=== PATIENT | female | born 1995 | race Hispanic/Latino ===

== ENCOUNTER 2020-02-04 19:10 | Inpatient (IN) ==
[2020-02-04] MEDS ORDERED: STADOL IV PRN ×3 (21:02)
[2020-02-04] MEDS ORDERED: AMPICILLIN 2 GM in NS 100 ML IV ONE (21:02)
[2020-02-04] MEDS ORDERED: PEPCID PO PRN (21:02)
[2020-02-04] MEDS ORDERED: AMBIEN PO PRN (21:02)
[2020-02-04] MEDS ORDERED: LR 1,000 ML IV ONE (21:02)
[2020-02-04] MEDS ORDERED: BRETHINE SUBQ PRN (21:02)
[2020-02-04] MEDS ORDERED: PEPCID IV PRN (21:02)
[2020-02-04] MEDS ORDERED: REGLAN PO ONE (21:02)
[2020-02-04] MEDS ORDERED: ZOFRAN IV PRN (21:02)
[2020-02-04] MEDS ORDERED: PEPCID PO ONE (21:02)
[2020-02-04] MEDS ORDERED: KEFZOL 1 GM/D5W 1 GM/50 ML IVPB IV PRN (21:02)
[2020-02-04] MEDS ORDERED: XYLOCAINE-MPF 1% INJ PRN (21:08)
[2020-02-04] MEDS ORDERED: MINERAL OIL TOP PRN (21:08)
[2020-02-04 21:17] LABS: URINE SOURCE VOIDED
[2020-02-04 21:23] LABS: BILIRUBIN URINE NEGATIVE (NEGATIVE); BLOOD URINE NEGATIVE (NEGATIVE); COLOR YELLOW; GLUCOSE URINE NEGATIVE (NEGATIVE); KETONE URINE NEGATIVE (NEGATIVE); LEUKOCYTES URINE LARGE (NEGATIVE); NITRITE URINE NEGATIVE (NEGATIVE); PH URINE 6.5; PROTEIN URINE NEGATIVE (NEGATIVE); SP GRAVITY URINE 1.007; TURBIDITY URINE HAZY (CLEAR); UROBILINOGEN URINE NORMAL (NORMAL)
[2020-02-04 21:31] LABS: UR AMPHETAMINES QUAL NONE DETECTED (NONE DETECT); UR BARBITUATES QUAL NONE DETECTED (NONE DETECT); UR BENZODIAZEPIN QUAL NONE DETECTED (NONE DETECT); UR CANNABINOIDS QUAL NONE DETECTED (NONE DETECT); UR COCAINE QUAL NONE DETECTED (NONE DETECT); UR METHADONE QUAL NONE DETECTED (NONE DETECT); UR OPIATES QUAL NONE DETECTED (NONE DETECT); UR OXYCODONE QUAL NONE DETECTED (NONE DETECT); UR PCP QUAL NONE DETECTED (NONE DETECT)
[2020-02-04] MEDS ORDERED: CYTOTEC VAG ONE (22:00)
[2020-02-04 22:06] LABS: BASO# 0.04 X1000 (0.0-0.2); BASO% 0.6 % (0.0-0.8); EOS# 0.08 X1000 (0.0-0.7); EOS% 1.1 % (0.0-10.0); HEMATOCRIT 34.1 % (37.0-47.0); HEMOGLOBIN 11.3 g/dL (12.0-16.0); IMM GRAN# 0.04 X1000 (0.0-0.04); IMM GRAN% 0.6 % (0.0-0.5); LYMPH# 2.65 X1000 (1.2-3.4); LYMPH% 36.9 % (20.5-51.1); MCH 27.2 PG (27-31); MCHC 33.1 g/dL (33-37); MCV 82.2 FL (81-99); MONO# 0.31 X1000 (0.11-0.59); MONO% 4.3 % (1.7-9.3); MPV 11.2 FL (7.4-10.4); NEUT# 4.07 X1000 (1.4-6.5); NEUT% 56.5 % (42.2-75.2); PLT 176 X1000 (130-400); RBC 4.15 XMIL (4.2-5.4); RDW 13.4 % (11.5-14.5); WBC 7.19 X1000 (4.8-10.8)
[2020-02-05] MEDS ORDERED: CYTOTEC VAG SCH (02:00)
[2020-02-05] MEDS: AMPICILLIN 1 GM in NS 50 ML IV SCH ×2 (02:20→06:07)
[2020-02-05] MEDS: LR 1,000 ML IV SCH ×2 (02:22→08:14)
[2020-02-05] MEDS ORDERED: PITOCIN 30 UNITS/NS 30 UNIT/500 ML IV.SOLN IV SCH (06:00)
--- NOTE | 2020-02-05 07:24 | HISTORY AND PHYSICAL ---
HISTORY OF PRESENT ILLNESS: Ms. Patton is a 24-year-old, G 2, P 1-0-0-1 at 39 weeks and 2 days, who presents to Labor and Delivery for scheduled induction of labor. The patient currently without complaints, reports good movements, denies contractions, leakage of fluid or vaginal bleeding. Current unremarkable. No complications. Initial labs showed Rh positive, RPR nonreactive, HIV nonreactive, hepatitis B and hepatitis C nonreactive. Negative urine drug screen. CURRENT MEDICATIONS: vitamins. ALLERGIES: No known drug allergies. PAST MEDICAL HISTORY: None. PAST SURGICAL HISTORY: None. 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 Menarche at age 12. OBSTETRICAL HISTORY: G 2, P 1-0-0-1. One prior full-term vaginal delivery at 40 weeks on 11/04/2018, male infant, no complications. FAMILY HISTORY: Noncontributory. SOCIAL HISTORY: Negative. Denies tobacco, alcohol, or drug use. PHYSICAL EXAMINATION: VITALS: Temperature 97.2 degrees, pulse rate 68, respiration rate 18, blood pressure 106/66, O2 saturation 98% on room air. Weight 140 pounds, height 5 feet 0 inches tall. GENERAL: On physical examination, no acute distress. Alert, awake, oriented x3. CARDIOVASCULAR: Regular rate and rhythm. Positive S1, S2. RESPIRATORY: Clear to auscultation bilaterally. Negative rhonchi, rales or wheezing. ABDOMEN: Gravid, soft, nontender to palpation. PELVIS: Sterile vaginal exam, 3 cm dilated, 80% effaced, -2 station. EXTREMITIES: Negative calf tenderness. There is +1 edema. CURRENT LABS: WBCs 7.19, hemoglobin 11.3, hematocrit 34.1, platelets 176. Urine drug screen negative. RPR nonreactive. GBS status positive. ASSESSMENT: Ms. Patton is a 24-year-old, 2, para 1-0-0-1 at 39 weeks and 2 days, who presents for scheduled induction of labor. 1. Admit to Labor and Delivery for routine induction. 2. Induction with intravenous Pitocin. 3. Obtain routine labor labs. 4. Continuous electronic monitoring. 5. GBS positive status. We will continue intravenous ampicillin every 4 hours until delivery. 6. Estimated weight 7-1/2 pounds. 7. Anticipate spontaneous vaginal delivery. Patient counseled on risks, benefits, and alternatives to procedure. Risks not limited to infection, bleeding, vaginal laceration, delivery with vacuum or emergent delivery. The patient understands risks and agrees to procedure.
[2020-02-05] MEDS ORDERED: BICITRA PO ONE (08:13)
[2020-02-05] MEDS ORDERED: REGLAN PO ONE (08:13)
[2020-02-05] MEDS ORDERED: BICITRA ONE (08:15)
[2020-02-05] MEDS ORDERED: DIPRIVAN 1% ONE (08:22)
[2020-02-05] MEDS: KEFZOL 2 GM/D5W 2 GM/50 ML IVPB IV ONE ×3 (08:25→17:58)
[2020-02-05] MEDS ORDERED: MORPHINE ONE (08:39)
[2020-02-05] MEDS ORDERED: SODIUM CHLORIDE 0.9% 10 ML ONE ×2 (08:40→09:09)
[2020-02-05] MEDS ORDERED: ZOFRAN ONE (08:41)
[2020-02-05] MEDS ORDERED: PITOCIN ONE (08:47)
[2020-02-05] MEDS ORDERED: XYLOCAINE-MPF 2% ONE (08:54)
[2020-02-05] MEDS ORDERED: QUELICIN (DOSE) ONE (09:09)
[2020-02-05] MEDS ORDERED: DEMEROL PO PRN ×4 (09:35→09:57)
[2020-02-05] MEDS ORDERED: DULCOLAX PR PRN ×2 (09:35→09:57)
[2020-02-05] MEDS ORDERED: ATARAX PO PRN ×2 (09:35→09:56)
[2020-02-05] MEDS ORDERED: BOOSTRIX VACCINE IM ONE (09:35)
[2020-02-05] MEDS ORDERED: DEMEROL IM PRN ×2 (09:35→09:56)
[2020-02-05] MEDS ORDERED: MOTRIN PO PRN (09:35)
[2020-02-05] MEDS ORDERED: PITOCIN 20 UNITS/NS 20 UNITS/1,000 ML IV.SOLN IV ONE ×2 (09:35→11:00)
[2020-02-05] MEDS ORDERED: HYDROXYZINE IM PRN ×2 (09:35→09:57)
[2020-02-05] MEDS ORDERED: AMBIEN PO PRN (09:35)
[2020-02-05] MEDS ORDERED: MYLICON PO PRN ×2 (09:35→09:59)
[2020-02-05] MEDS ORDERED: PHENERGAN IM PRN ×2 (09:35→10:00)
[2020-02-05] MEDS ORDERED: PITOCIN IM PRN ×2 (09:35→10:02)
[2020-02-05] MEDS ORDERED: M-M-R II VACCINE SUBQ ONE (09:35)
[2020-02-05] MEDS ORDERED: PITOCIN 10 UNITS/NS 1,000 ML IV SCH (09:45)
[2020-02-05] MEDS ORDERED: TORADOL IV SCH (09:45)
[2020-02-05] MEDS ORDERED: OFIRMEV 1000 MG/ISOTONIC SOLN 1,000 MG/100 ML BOTTLE IV SCH (09:45)
[2020-02-05] MEDS ORDERED: LR 1,000 ML IV SCH ×3 (10:00→11:00)
[2020-02-05] MEDS ORDERED: BENADRYL IV PRN ×2 (10:08→10:15)
[2020-02-05] MEDS ORDERED: SODIUM CHLORIDE 0.9% INJ PRN ×2 (10:08→10:15)
[2020-02-05] MEDS ORDERED: PHENERGAN IV PRN ×2 (10:08→10:15)
[2020-02-05] MEDS ORDERED: NARCAN IV PRN ×2 (10:08→10:15)
[2020-02-05] MEDS ORDERED: MORPHINE IV ONE (10:15)
[2020-02-05] MEDS ORDERED: MORPHINE PCA IV PRN (10:15)
[2020-02-05] MEDS: MORPHINE PCA IV PRN (10:30)
[2020-02-05] MEDS ORDERED: MYLICON PO SCH (13:00)
[2020-02-05] MEDS: TORADOL IV SCH (17:50)
[2020-02-05] MEDS: OFIRMEV 1000 MG/ISOTONIC SOLN 1,000 MG/100 ML BOTTLE IV SCH (18:05)
[2020-02-05] MEDS: PITOCIN 10 UNITS/NS 1,000 ML IV SCH (18:05)
[2020-02-05] MEDS ORDERED: PERICOLACE PO SCH (21:00)
[2020-02-06] MEDS: OFIRMEV 1000 MG/ISOTONIC SOLN 1,000 MG/100 ML BOTTLE IV SCH ×4 (00:05→13:06)
[2020-02-06] MEDS: TORADOL IV SCH ×5 (00:07→17:25)
[2020-02-06] MEDS: PERICOLACE PO SCH ×2 (00:08→20:26)
[2020-02-06] MEDS: MYLICON PO SCH ×6 (00:08→20:25)
[2020-02-06] MEDS: PITOCIN 10 UNITS/NS 1,000 ML IV SCH (02:30)
[2020-02-06 05:56] LABS: BASO# 0.01 X1000 (0.0-0.2); BASO% 0.1 % (0.0-0.8); EOS# 0.04 X1000 (0.0-0.7); EOS% 0.4 % (0.0-10.0); HEMATOCRIT 26.7 % (37.0-47.0); HEMOGLOBIN 8.6 g/dL (12.0-16.0); IMM GRAN# 0.02 X1000 (0.0-0.04); IMM GRAN% 0.2 % (0.0-0.5); LYMPH# 1.97 X1000 (1.2-3.4); LYMPH% 20.6 % (20.5-51.1); MCHC 32.2 g/dL (33-37); MONO% 4.2 % (1.7-9.3); MPV 10.6 FL (7.4-10.4); NEUT% 74.5 % (42.2-75.2); PLT 162 X1000 (130-400); RBC 3.18 XMIL (4.2-5.4); RDW 13.3 % (11.5-14.5); WBC 9.54 X1000 (4.8-10.8)
[2020-02-06] MEDS: MORPHINE PCA IV PRN (08:15)
--- NOTE | 2020-02-06 08:30 | OPERATIVE NOTE ---
PROCEDURE DATE: 02/05/2020 SURGEON: Dr. Lia Davey. APPOINTMENT SCHEDULER: Saba Jimeenz. PREOPERATIVE DIAGNOSES: 1. Intrauterine at 39 weeks and 2 days based on first trimester ultrasound. 2. Non reassuring heart tracing. 3. Thick meconium. POSTOPERATIVE DIAGNOSIS: 1. Intrauterine at 39 weeks and 2 days based on first trimester ultrasound. 2. Non reassuring heart tracing. 3. Thick meconium. PROCEDURE PERFORMED: Primary low-transverse section. ANESTHESIA: General endotracheal anesthesia. URINE OUTPUT: 300 mL. ESTIMATED BLOOD LOSS: 1 L. COMPLICATIONS: None. SURGICAL RISK: The patient was informed of the risks and benefits of the procedure. Risks included, but were not limited to bleeding, infection, injury to internal organs and possible hysterectomy. The patient expressed understanding of the risks involved. All questions were answered and the patient consented to the procedure. DESCRIPTION OF PROCEDURE: The patient was taken to the operating room where a time-out was performed to confirm correct patient and correct procedure. Prophylactic intravenous antibiotics was administered. The patient was placed in a dorsal supine position with a left tilt of the hips. The patient was then prepped and draped in the usual sterile fashion for a Pfannenstiel skin incision. General anesthesia was then adequately established. An incision was made in the skin with a surgical scalpel, and sharp dissection was carried out over subsequent layers of tissue including the fascia. The fascia was incised at the midline, and a fascial incision was extended bilaterally using the Bovie electrocautery. The inferior edge of the fascial incision was grasped with Elizabeth clamps, tented up, and the underlying rectus muscle dissected off using the Bovie electrocautery. Attention was then turned to the superior edge, which was grasped with Elizabeth clamps, tented up, and the underlying rectus muscles were dissected off using the Bovie electrocautery. The rectus muscle was then divided at the midline, and the peritoneum was identified and bluntly entered at its superior margin, taking care to avoid the bladder. The peritoneal incision was extended superiorly and inferiorly with good visualization of the bladder. The bladder blade was inserted, and a transverse incision was made in the lower uterine segment using the scalpel. The uterine incision was extended bilaterally using blunt dissection. The surgeon's hand was placed in the uterine cavity. The cord was noted below the head and manually displaced. The head was elevated into the abdomen after removing the cord, and delivered through the uterine incision with the assistance of fundal pressure. The was examined for nuchal cord. Nuchal cord x1 was identified and reduced. The was then delivered with traction and assistance of fundal pressure. The infant's oral and nasal passages were bulb suctioned. On delivery, the cord was clamped and cut. The was then passed off the table to the awaiting acupressurist staff for further care. Cord blood was obtained for analysis and routine blood testing. Placenta was delivered manually and extracted intact with a three-vessel cord. Oxytocin was administered by IV infusion to enhance uterine contraction. The uterus was exteriorized and cleared of all clots and remaining products of conception. The uterine incision was reapproximated using 0 Monocryl absorbable suture in a running locked fashion. A second 0 Monocryl stitch was used for non hemostatic areas and applied in a [id number] fashion. Good hemostasis was confirmed. The uterus was replaced in the abdomen, and pericolic gutters were cleared of all clots. The fascia was reapproximated using 0 Vicryl in a running nonlocked fashion. The skin was reapproximated using 4-0 Monocryl on a Jose stitch insert in a subcuticular stitch fashion. All needle, sponge, and instrument counts were noted to be correct x2 at the end of the procedure. The patient tolerated the procedure well, and was transferred to the recovery room in stable condition.
[2020-02-06] MEDS ORDERED: LR 1,000 ML IV SCH (09:35)
--- NOTE | 2020-02-06 11:45 | PROGRESS NOTE ---
DATE: 02/06/2020 SUBJECTIVE: She was assessed in her room and has no complaints at this time. She has not stood up to ambulate secondary to having a section and due to the IV medications that she is receiving. However, the IV medications will be discontinued at 12 noon. The patient will ambulate with assistance and will be allowed to shower. She is doing well and her pain is well controlled at this time. She speaks very little Italian, and her spouse assisted with her translation. OBJECTIVE: Vital Signs: On physical examination, vital signs within normal limits. Heart: Regular rhythm and rate without murmur. Lungs: Clear to auscultation. Abdomen: Soft, nontender to soft palpation, firm fundus, dressing in place to cover the incision and is non soiled. Extremities: With compression devices actively working. No Homans sign. ASSESSMENT: Status post primary section postoperative day #1, stable (continue postoperative management). PLAN: 1. Discontinue IV analgesia at 12 noon, in addition to operative anesthetic. 2. Ambulate with assistance after 12 noon. 3. The patient may shower when able to ambulate safely. 4. Continue postoperative management.
[2020-02-06] MEDS ORDERED: PERCOCET-5 PO PRN (16:05)
[2020-02-06] MEDS: PERCOCET-10 PO PRN ×2 (16:22→19:44)
[2020-02-06] MEDS: MOTRIN PO PRN (19:46)
[2020-02-07] MEDS: TYLENOL PO PRN ×3 (02:38→17:20)
[2020-02-07] MEDS: PERCOCET-10 PO PRN ×5 (04:30→20:57)
[2020-02-07] MEDS: MOTRIN PO PRN ×2 (04:31→14:02)
--- NOTE | 2020-02-07 07:23 | OB/GYN PROGRESS NOTE ---
- Subjective no complaints, discussed possible discharge tomorrow OB Physical Exam Vital Signs - 8 hr 02/07/20 00:02 02/07/20 04:31 Temperature 97.3 F L 96.9 F L Pulse Rate 86 86 Respiratory Rate 18 18 Blood Pressure 117/72 112/66 O2 Sat by Pulse Oximetry 100 97 - CONSTITUTIONAL General Appearance: appears well, alert, no apparent distress - EYES Eyes: PERRL/EOMI - HEAD, EARS, NOSE, MOUTH & THROAT HENMT: normocephalic/atraumatic - RESPIRATORY Respiratory: no respiratory distress - CARDIOVASCULAR Cardiovascular: regular rate, rhythm - GASTROINTESTINAL (ABDOMEN) Abdominal Exam: non tender, soft (incision intact without erythema) - GENITOURINARY Female Genitalia/Pelvic Exam: deferred - MUSCULOSKELETAL Extremity: normal range of motion - SKIN Integumentary: normal color - NEUROLOGIC Neurologic: grossly normal - PSYCHIATRIC Psych/Mental Status: normal mood/affect, oriented x 3 Active Medications Generic Name Dose Route Start Last Admin Trade Name Freq PRN Reason Stop Dose Admin Acetaminophen 650 mg 02/04/20 21:02 02/07/20 02:38 Tylenol PO 650 mg Q4-6H PRN PRN Administration Headache Bisacodyl 10 mg 02/05/20 09:57 Dulcolax UT PRN PRN gas unrelieved by Mylicon Diphenhydramine HCl 12.5 - 25 mg 02/05/20 10:08 Benadryl IV Q6H PRN PRN Itching Famotidine 20 mg 02/04/20 21:02 Pepcid PO Q12H PRN PRN GI upset or indigestion Famotidine 20 mg 02/04/20 21:02 02/05/20 08:16 Pepcid IV 20 mg Q12H PRN PRN Administration GI upset or indigestion Hydroxyzine HCl 50 mg 02/05/20 09:56 Atarax PO Q3-4H PRN PRN Nausea Hydroxyzine HCl 50 mg 02/05/20 09:57 Hydroxyzine IM Q3-4H PRN PRN Nausea Ibuprofen 800 mg 02/06/20 09:00 02/07/20 04:31 Motrin PO 800 mg Q8H PRN PRN Administration Pain Meperidine HCl 50 mg 02/05/20 09:56 Demerol IM Q3H PRN PRN Pain Meperidine HCl 50 mg 02/05/20 09:57 Demerol PO Q4H PRN PRN Pain (1-6 on Pain Scale) Meperidine HCl 100 mg 02/05/20 09:57 Demerol PO Q4H PRN PRN Pain (7-10 on Pain Scale) Morphine Sulfate 0 mg 02/05/20 10:07 02/06/20 08:15 Morphine Stone Spreader Operator IV 30 mg PRN PRN Administration Pain Naloxone HCl 0.2 mg 02/05/20 10:08 Narcan IV PRN PRN DECREASED RESPIRATORY RATE Ondansetron HCl 4 mg 02/04/20 21:02 Zofran IV PRN PRN Nausea Oxycodone/Acetaminophen 1 each 02/06/20 16:04 02/07/20 04:30 Percocet-10 PO 1 each Q4H PRN PRN Administration Pain Oxycodone/Acetaminophen 1 each 02/06/20 16:05 Percocet-5 PO Q4H PRN PRN Pain Promethazine HCl 25 mg 02/05/20 10:00 Phenergan IM Q3H PRN PRN Pain Promethazine HCl 12.5 mg 02/05/20 10:08 Phenergan IV Q6H PRN PRN Nausea Senna/Docusate Sodium 1 each 02/05/20 21:00 02/06/20 20:26 Pericolace PO 1 each QHS JOSE ENRIQUE Administration Simethicone 80 mg 02/05/20 13:00 02/06/20 20:25 Mylicon PO 80 mg PC + HS JOSE ENRIQUE Administration Simethicone 80 mg 02/05/20 09:59 Mylicon PO PRN PRN GAS Sodium Chloride 10 ml 02/05/20 10:08 Sodium Chloride 0.9% INJ PRN PRN TO DILUTE PHENERGAN FOR IV USE Terbutaline Sulfate 0.25 mg 02/04/20 21:02 Brethine SUBQ PRN PRN tachysystole/hypertonus Zolpidem Tartrate 10 mg 02/04/20 21:02 Ambien PO HS PRN PRN Sleep OB Assessment & Plan (1) Normal course Status: Acute Plan: continue to follow, encourage to ambulate, POD #2 primary cs
[2020-02-07] MEDS: MYLICON PO SCH ×4 (08:27→20:57)
[2020-02-07] MEDS: PERICOLACE PO SCH (20:57)
[2020-02-08] MEDS: PERCOCET-10 PO PRN ×3 (00:49→12:29)
[2020-02-08] MEDS: MOTRIN PO PRN ×2 (00:49→12:30)
[2020-02-08 07:41] VITALS: BP 122/75
[2020-02-08] MEDS: MYLICON PO SCH ×2 (08:36→12:31)
[2020-02-08] MEDS ORDERED: FLU VACCINE IM ONE (11:30)
--- NOTE | 2020-02-08 12:51 | DISCHARGE SUMMARY ---
ADMISSION DATE: 02/04/2020 DISCHARGE DATE: 02/08/2020 DISCHARGE DIAGNOSES: 1. Attempted induction of labor. 2. Positive Group B Beta Strep culture. 3. Non-reassuring heart tones. 4. Anemia 5. RPR nonreactive. PROCEDURE: Primary Section performed on 02/05/2020. HOSPITAL COURSE: Chari is a 24-year-old [facility] female who presented to the Labor and Delivery at [facility] as a 2, para 1-0-0-1 at 39-2/7 weeks gestation. She presented for an induction of labor, and has a history of a positive group B beta strep culture. IV antibiotics were administered for the treatment of her GBS status. She was examined cervically and found to have a dilation of 3 centimeters. During her labor induction, the fetus began to experience non-reassuring heart tones. Therefore a primary section was called. A viable female was delivered on 02/05/2020 at 8:38 a.m. weighing 5 pounds 13 ounces, with scores of 2 at 1 minute, 6 at 5 minutes, and 7 at 10 minute. The male was transferred to [facility] secondary to respiratory distress. Chari's surgery ended uneventfully and she was transferred to the floor to begin her postoperative recovery. She received a morphine RD SCIENTIST for pain control that was discontinued on postoperative day #1 at noon. She was switched to oral analgesics and was assisted with ambulation. When bowel sounds were auscultated, she was given a regular diet of which she tolerated well. She was instructed to use her incentive spirometer. Her lochia was noted to be light in flow. On postoperative day #2 she was assisted to the shower and did not have difficulty. She was noted to ambulate frequently in her room on postoperative day #2 as her recovery was noted to be unremarkable. On postoperative day #3, she was examined again and was noted to be stable. Her incision during her hospital course was noted to be healing well and without signs of infection and steri strips in place. PHYSICAL EXAMINATION was unremarkable: Heart: Regular rhythm and rate without murmur. Lungs: Clear to auscultation bilaterally. Abdomen: Appropriate tenderness upon palpation, positive bowel sounds, incision healing well without signs of infection and with Steri- Strips in place, no oozing. Extremities: SCDs in place, no Homans sign. LABORATORY RESULTS: WBC 9.5, hemoglobin 8.6, hematocrit 26.7, platelet count 162,000. Urinalysis with large leukocyte, no bacteria identified. Kleihauer-Betke test IS <0.01. Urinary drug screen is negative, RPR nonreactive. ASSESSMENT 1. s/p Primary Section POD#3 2. Non-reassuring heart tones. 3. Attempted induction of labor. 4. Positive Group B Beta Strep culture. 5. Non-reassuring heart tones. 6. Anemia 7. RPR nonreactive. 8. Stable for D/C PLAN: (Language Line) 1. Discharged to home with instructions. Pt. may see her @ [facility] 2. The patient given educational literature regarding Baby Blues, Home Care for Mom, Care after , and the Influenza Vaccine. 3. The patient is to call the office of Dr. Davey as for incision examination in 1 week, and after this appointment additional appointments will be made for an incision exam and a 6-week examination. 4. Pt. f/u w Dr. Davey re: rubella status 5. The patient is to pickup her prescriptions at [facility] on [facility], which include Tylenol #3 (#20 tablets), take 1 tablet by mouth every 4 hours as needed for pain, no refill; Motrin 800 (#30), take 1 tablet by mouth every 8 hours as needed for pain, one refill, and Feosol 325 mg, #60 of which she is to take 1 tablet by mouth twice a day, no refill. DISPOSITION: The patient was discharged to home on postoperative day #3 in stable condition. [facility]
== END 2020-02-08 12:50 | disposition home or self-care (01) | DRG 788 ==
LOC: LD 19:10
PROVIDERS: ADMIT Obstetrics & Gynecology; ATTEND Obstetrics & Gynecology